=== PATIENT | male | born 1950 | race American Indian/Alaskan Native ===

== ENCOUNTER 2024-03-07 11:15 | Day surgery (SDC) | payer MEDICARE ==
[2024-03-06 10:55] LABS: BASOPHILS % (AUTO) 0.2 % (0-1); EOSINOPHILS % (AUTO) 0.8 % (0-6); HEMATOCRIT 37.4 % (42.0-52.0); HEMOGLOBIN 12.6 g/dl (14.0-17.9); LYMPHOCYTES # (AUTO) 1.2 X10'3 (1.1-4.8); LYMPHOCYTES % (AUTO) 23.9 % (21-51); MEAN CORPUSCULAR HEMOGLOBIN 29.8 PG (27.0-31.0); MEAN CORPUSCULAR HGB CONC 33.6 g/dL (33.0-36.5); MEAN CORPUSCULAR VOLUME 88.5 FL (78-98); MEAN PLATELET VOLUME 8.3 FL (7.4-10.4); MONOCYTES # (AUTO) 0.5 X10'3 (0-0.9); MONOCYTES % (AUTO) 9.7 % (2-12); NEUTROPHILS # (AUTO) 3.2 X10'3 (1.8-7.7); NEUTROPHILS % (AUTO) 65.4 % (42-75); PLATELET COUNT 185 X10'3 (140-440); RED BLOOD COUNT 4.23 X10'6 (4.70-6.10); RED CELL DISTRIBUTION WIDTH 13.3 % (11.5-14.5); WHITE BLOOD COUNT 4.8 X10'3 (4.5-11.0)
[2024-03-06 11:09] LABS: ALBUMIN 3.2 G/DL (3.4-5.0); ANION GAP 4 (8-16); APTT 27 SECONDS (22-32); BLOOD UREA NITROGEN 11 MG/DL (7-18); BUN/CREATININE RATIO 12.4 (10.0-20.0); CALCIUM 8.4 MG/DL (8.5-10.1); CHLORIDE 105 MMOL/L (99-107); CHOL/HDL RATIO 2.7 (0.00-4.99); CHOLESTEROL 122 MG/DL (0-200); CREATININE 0.89 MG/DL (0.60-1.10); GLUCOSE 98 MG/DL (70-104); HDL CHOLESTEROL 46 MG/DL (35-60); LDL CHOLESTEROL 73 MG/DL (50-100); POTASSIUM 4.1 MMOL/L (3.5-5.1); PROTHROMBIN TIME 10.4 SECONDS (9.0-12.0); SODIUM 138 MMOL/L (135-145); TOTAL CARBON DIOXIDE 29.3 MMOL/L (24-32); TRIGLYCERIDES 53 MG/DL (20-135); eGFR 84 ML/MIN
[~2024-03-07] VITALS: Ht 182.9 cm; Wt 99.5 kg
[2024-03-07] VITALS (9 sets, daily range): BP systolic 121–161; BP diastolic 67–90; PULSE 49–62; RESP 10–20; TEMP 98.2; O2SAT 96–98
[2024-03-07] MEDS ORDERED: ATOR40TA PO (11:36)
[2024-03-07] MEDS ORDERED: FLO0.4C PO (11:36)
[2024-03-07] MEDS ORDERED: ASPI-1265 PO (11:36)
[2024-03-07] MEDS ORDERED: LORazepam 0.5 MG tablet PO PRN (11:45)
[2024-03-07] MEDS: normal saline 1,000 ML IV SCH (13:30)
[2024-03-07] MEDS: diphenhydrAMINE 25mg capsule PO PRN (13:30)
[2024-03-07] MEDS ORDERED: heparin 1,000unit/ml 10ml vial 10 ML ONE (13:58)
[2024-03-07] MEDS ORDERED: midazolam 1 mg/ML 2ml injection ONE (13:58)
[2024-03-07] MEDS ORDERED: iohexol 350MG/ML 100ml bottle IV ONE ×2 (13:58→15:07)
[2024-03-07] MEDS ORDERED: fentaNYL/PF 50MCG/1 ML 2ML syringe ONE (13:58)
[2024-03-07] MEDS ORDERED: LIDOcaine 1% (10mg/ml) 2ml vial ONE (13:58)
[2024-03-07] MEDS ORDERED: verapamil 2.5 mg/ml inj IV ONE (13:58)
[2024-03-07] MEDS ORDERED: nitroGLYCERIN 500mcg/5mL D5W 5 ML IV ONE (13:59)
[2024-03-07] MEDS ORDERED: ondansetron/PF 4mg/2ml inj IV PRN (16:10)
[2024-03-07] MEDS ORDERED: proCHLORperazine 10 MG/2 ml inj IV PRN (16:10)
== END 2024-03-07 18:05 | disposition home or self-care (01) ==
LOC: SSTAY O 11:15
PROVIDERS: ATTEND Internal Medicine Interventional Cardiology
DX: I25.110 Atherosclerotic heart disease of native coronary artery with unstable angina pectoris (principal); R94.31 Abnormal electrocardiogram [ECG] [EKG]; I10 Essential (primary) hypertension; E78.00 Pure hypercholesterolemia, unspecified; Z79.899 Other long term (current) drug therapy
CPT/HCPCS: 36415; 80048; 80061; 85025; 85610; 85730; 93005; 93458; 99152; A6258; A6402; C1769; C1894; J1644; J2003; J2250; J3010; J3490; J7030; Q0163; Q9967; Z7610